=== PATIENT | female | born 2000 | race Asian ===

== ENCOUNTER → 2019-07-25 19:00 | Emergency (ER) | payer OTHER ==
[~2019-07-25 19:00] MED LIST: Ketorolac INJ* 30 MG/ML 1 ML VIAL IV PUSH ONE; NS 0.9% 1000 ML** 1,000 ML IV ONE; Ondansetron INJ* 2 MG/ML VIAL IV ONE; cefTRIAXone(*) 1 GM in NS 0.9% 50 ML* 50 ML IVPB ONE
[2019-07-25 21:35] LABS: ABS Eosinophils 0.1 10^3/ul (0-0.6); ABS Lymphocytes 0.5 10^3/ul (1.0-4.8); ABS Monocytes 0.6 10^3/ul (0-0.8); ABS Neutrophils 7.5 10^3/ul (1.5-7.7); Eosinophil % 1.1 %; Hematocrit 38 % (35-47); Hemoglobin 13.2 g/dL (12.0-16.0); Lymphocyte % 5.8 %; Mean Corpuscular HGB Conc 35 g/dL (31-36); Mean Corpuscular Hemoglobin 31 pg (27-31); Mean Corpuscular Volume 88 fL (80-97); Mean Platelet Volume 7.8 fL (7.4-10.4); Platelet Count 162 10^3/uL (150-450); Red Cell Distribution Width 12 % (10-15); White Blood Count 8.7 10^3/uL (3.5-10.8)
--- NOTE | 2019-07-25 21:51 | ED ---
GI/ HPI - HPI Summary HPI Summary: Patient is a 18 y/o F presenting to [facility] with complaints of back pain, N/V, fever, and UTI Sx. She states that she was recently diagnosed with a UTI and prescribed Macrobid. However, last evening, she experienced N/V. When she awoke in the morning, she states that she measured her temperature to be 101 F. Patient took Advil and her antibiotic. However, she states that she also experienced onset of back pain and came to ED for evaluation as she is concerned that she has a kidney infection. Decreased appetite is noted as well but diarrhea is denied. Hx of UTIs noted. Patient states that she is on control but no other daily medications. LNMP was 07/08/19. She claims allergy to Penicillin. No PSHx noted. She is adopted and does not know FMHx. She notes occasional alcohol usage but none recently. Vape, cigarette, and other substance usage denied. Home medications and allergies are reviewed. - History of Current Complaint Chief Complaint: EDFlankPain Time Seen by Provider: 07/25/19 21:25 Stated Complaint: LOWER BACK PAIN PER PT Hx Obtained From: Patient Onset/Duration: Still Present Timing: Constant Severity: Severe Current Severity: Severe Pain Intensity: 7 Location of Pain: Other - back pain Associated Signs and Symptoms: Positive: Back Pain, Nausea, Vomiting, Fever, Change in Appetite - decreased, UTI Symptoms. Negative: Diarrhea - Allergy/Home Medications Allergies/Adverse Reactions: Allergies Allergy/AdvReac Type Severity Reaction Status Date / Time latex Allergy Unknown Verified 07/25/19 19:12 Reaction Details Penicillins Allergy Unknown Verified 07/25/19 19:12 Reaction Details Home Medications: Home Medications Cephalexin CAP* [Keflex CAP*] 500 mg PO TID #15 cap 07/25/19 [Rx] PMH/Surg Hx/FS Hx/Imm Hx History: Reports: Other Problems/Disorders - UTI Sensory History: Denies: Hx Legally Blind, Hx Deafness Opthamlomology History: Denies: Hx Legally Blind EENT History: Denies: Hx Deafness - Surgical History Surgery Procedure, Year, and Place: none as of 07/25/19 Infectious Disease History: No Infectious Disease History: Denies: Traveled Outside the [place] in Last 30 Days - Family History Known Family History: Positive: Unknown - patient is adopted - Social History Alcohol Use: Occasionally Substance Use Type: Reports: None Smoking Status (MU): Never Smoked Tobacco - Additional Comments History Additional Comments: PMHx of UTIs no PSHx adopted, unknown FMHx SHx of occasional alcohol usage Review of Systems Positive: Fever Gastrointestinal: Other - positive - decreased appetite Positive: Vomiting, Nausea. Negative: Diarrhea Genitourinary: Other - positive - UTI Sx Positive: Myalgia - back pain All Other Systems Reviewed And Are Negative: Yes Physical Exam - Summary Physical Exam Summary: General: Well-developed, Well-nourished female. No acute distress. HEENT: Normocephalic, Atraumatic. Eyes: Conjuctiva normal, PERRL. Oropharynx: Clear, mucous membranes moist, (-) exudates. Neck: Soft, FROM, (-) lymphadenopathy, (-) thyromegaly, (-) JVD. Cardiovascular: Normal sinus rhythm, (-) murmur. Lungs: Clear to auscultation bilaterally (-) wheezes, (-) rales, (-) rhonchi. Abdomen: Soft, non-tender, non-distended, (-) organomegaly, normal bowel sounds. Back: (+) bilateral CVA tenderness Extremities: No edema. Skin: Warm, dry, (-) rash. Neuro: Alert and oriented x3, moves all extremities equally. No ataxia. No gait disturbance. No sensory deficit. Normal strength, normal sensation. Psychiatric: Mood normal, affect normal. Triage Information Reviewed: Yes Vital Signs On Initial Exam: Initial Vitals Temp Pulse Resp BP Pulse Ox 98.8 F 104 18 116/71 96 07/25/19 19:09 07/25/19 19:09 07/25/19 19:09 07/25/19 19:09 07/25/19 19:09 Vital Signs Reviewed: Yes Procedures - Sedation Patient Received Moderate/Deep Sedation with Procedure: No Diagnostics - Vital Signs Vital Signs Temp Pulse Resp BP Pulse Ox 07/25/19 19:09 98.8 F 104 18 116/71 96 - Laboratory Result Diagrams: 07/25/19 21:28 07/25/19 21:28 Lab Statement: Any lab studies that have been ordered have been reviewed, and results considered in the medical decision making process. GIGU Course/Dx - Course Course Of Treatment: 18-year-old female presents with flank pain. She states she was diagnosed with UTI 2 days ago. Started on Macrobid. She has been taking as directed. However she states she feels worse now with bilateral flank pain. Continues with lower abdominal pain now after she urinates. She felt feverish at home. Some nausea. No vomiting. Ate little today. On physical exam she is afebrile. Mild bilateral flank tenderness. No significant suprapubic tenderness. Workup demonstrates a normal white count. Normal lactic acid. obvious urinary tract infection. Patient given IV fluids, Toradol, Zofran,Rocephin. antibiotics switched to Keflex at this time. Advised plenty of fluids. Follow up with PCP. Follow up sooner for any worsening symptoms. - Diagnoses Provider Diagnoses: UTI (urinary tract infection) Discharge ED - Sign-Out/Discharge Documenting (check all that apply): Patient Departure - discharge - Discharge Plan Condition: Stable Disposition: HOME Prescriptions: Cephalexin CAP* [Keflex CAP*] 500 mg PO TID #15 cap Patient Education Materials: Urinary Tract Infection in Women (ED) Referrals: [facility] [Provider Group] - 3 Days Additional Instructions: PLEASE RETURN TO ED FOR ANY NEW OR WORSENING SYMPTOMS. PLEASE FOLLOW UP WITH YOUR PRIMARY CARE PHYSICIAN WITHIN THREE DAYS. - Billing Disposition and Condition Condition: STABLE Disposition: Home - Attestation Statements Document Initiated by Gucci: Yes Documenting Bobyibe: PATRICK ROTH Provider For Whom Gucci is Documenting (Include Credential): EFARÍN DURAN MD Scribe Attestation: PATRICK Elizabeth, scribed for EFRAÍN DURAN MD on 07/26/19 at 0312. Scribe Documentation Reviewed: Yes Provider Attestation: The documentation as recorded by the PATRICK bucio accurately reflects the service I personally performed and the decisions made by me, EFRAÍN DURAN MD Status of Scribe Document: Viewed
[2019-07-25 21:52] LABS: ALT 16 U/L (7-52); AST 17 U/L (13-39); Albumin 4.3 g/dL (3.2-5.2); Albumin/Globulin Ratio 1.4 (1-3); Alkaline Phosphatase 47 U/L (34-104); Anion Gap 8 mmol/L (2-11); BUN/Creatinine Ratio 17.9 (8-20); Blood Urea Nitrogen 12 mg/dL (6-24); CO2 Carbon Dioxide 24 mmol/L (22-32); Calcium 9.4 mg/dL (8.6-10.3); Chloride 104 mmol/L (101-111); EGFR African American 137.2 (>60); EGFR Non-African American 113.4 (>60); Glucose 107 mg/dL (70-100); Potassium 3.6 mmol/L (3.5-5.0); Sodium 136 mmol/L (135-145); Total Protein 7.3 g/dL (6.4-8.9)
[2019-07-25 21:58] LABS: HCG Pregnancy < 0.60 mIU/mL
[2019-07-25 22:47] LABS: Urine Appearance Cloudy; Urine Bilirubin Negative (Negative); Urine Blood Negative (Negative); Urine Color Amber; Urine Glucose Negative (Negative); Urine Ketones 1+ (Negative); Urine Nitrite Negative (Negative); Urine Protein 1+(30 mg/dL) (Negative); Urine Specific Gravity 1.029 (1.010-1.030); Urine Urobilinogen Positive (Negative)
[2019-07-25 22:52] LABS: Urine Bacteria 1+ (Absent); Urine Red Blood Cell Absent (Absent); Urine Squamous Epithelial Cell Present (Absent); Urine White Blood Cell 3+(>20/hpf) (Absent)
[2019-07-26 02:19] VITALS: BP 99/59
== END | disposition home or self-care (01) ==
LOC: ED 19:00
DX: N39.0 Urinary tract infection, site not specified (principal); Z88.0 Allergy status to penicillin; Z91.040 Latex allergy status
CPT/HCPCS: 36415; 80053; 81003; 81015; 84702; 85025; 87086; 96361; 96365; 96375; 99282; J0696; J1885; J2405